=== PATIENT | male | born 1975 | race American Indian/Alaskan Native ===

== ENCOUNTER 2020-11-01 05:01 | Emergency (ER) | payer BC ==
[2020-11-01 05:07] VITALS: BP 132/108
--- NOTE | 2020-11-01 05:22 | Emergency Department Report ---
ED General Adult HPI - General Chief complaint: Rectal Pain Stated complaint: HEMORRHOIDS Source: patient Mode of arrival: Ambulatory Limitations: No Limitations - History of Present Illness Initial comments: Patient is a 45-year-old -[place] male with a history of chronic external hemorrhoids who presents to the ED with acute onset persistent rectal pain due to external hemorrhoids for the last 12 hours. Patient states that the pain is worse with bowel movement or when he sits down. Patient denies rectal bleeding, dysuria, urine frequency and urgency, fever, chills, abdominal pain, nausea and vomiting, testicular pain, low back pain, nausea and vomiting, constipation or diarrhea. MD Complaint: Rectal pain, hemorrhoids -: Sudden, hour(s) (12) Location: buttocks Radiation: non-radiation Severity scale (0 -10): 4 Quality: aching, sharp Consistency: constant Improves with: none Worsens with: other (Bowel movement) Associated Symptoms: denies other symptoms. denies: confusion, chest pain, cough, diaphoresis, fever/chills, headaches, loss of appetite, malaise, nausea/vomiting, rash, seizure, shortness of breath, syncope, weakness, other Treatments Prior to Arrival: none - Related Data Previous Rx's Medication Instructions Recorded Last Taken Type Dibucaine 1% [Nupercainal] 1 applicatio ME TID #1 tube 11/01/20 Unknown Rx Hydrocortisone [Anusol-Hc 2.5% TOP 1 applic RC Q12H #1 cream..g. 11/01/20 Unknown Rx CREAM] Naproxen 500 mg PO Q12H PRN #24 tablet 11/01/20 Unknown Rx ED Review of Systems ROS: Stated complaint: HEMORRHOIDS Other details as noted in HPI Constitutional: denies: chills, fever Eyes: denies: eye pain, eye discharge, vision change ENT: denies: ear pain, throat pain Respiratory: denies: cough, shortness of breath, wheezing Cardiovascular: denies: chest pain, palpitations Endocrine: no symptoms reported Gastrointestinal: other (Rectal pain due to hemorrhoids). denies: abdominal pain, nausea, diarrhea Genitourinary: denies: urgency, dysuria Musculoskeletal: denies: back pain, joint swelling, arthralgia Skin: denies: rash, lesions Neurological: denies: headache, weakness, paresthesias Psychiatric: denies: anxiety, depression Hematological/Lymphatic: denies: easy bleeding, easy bruising ED Past Medical Hx - Medications Home Medications: Home Medications Medication Instructions Recorded Confirmed Last Taken Type Dibucaine 1% [Nupercainal] 1 applicatio ME TID #1 tube 11/01/20 Unknown Rx Hydrocortisone [Anusol-Hc 2.5% TOP 1 applic RC Q12H #1 cream..g. 11/01/20 Unknown Rx CREAM] Naproxen 500 mg PO Q12H PRN #24 tablet 11/01/20 Unknown Rx ED Physical Exam - General Limitations: No Limitations General appearance: alert, in no apparent distress - Head Head exam: Present: atraumatic, normocephalic, normal inspection - Eye Eye exam: Present: normal appearance, PERRL, EOMI Pupils: Present: normal accommodation - ENT ENT exam: Present: normal exam, normal orophraynx, mucous membranes moist, TM's normal bilaterally, normal external ear exam - Neck Neck exam: Present: normal inspection, full ROM. Absent: tenderness - Respiratory Respiratory exam: Present: normal lung sounds bilaterally. Absent: respiratory distress, wheezes, rales, rhonchi, stridor, chest wall tenderness, accessory muscle use, decreased breath sounds, prolonged expiratory - Cardiovascular Cardiovascular Exam: Present: regular rate, normal rhythm, normal heart sounds. Absent: systolic murmur, diastolic murmur, rubs, gallop - GI/Abdominal GI/Abdominal exam: Present: soft, normal bowel sounds. 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 Absent: tenderness, CVA tenderness (R), CVA tenderness (L), muscle spasm, paraspinal tenderness, vertebral tenderness - Neurological Exam Neurological exam: Present: alert, oriented X3, CN II-XII intact, normal gait, reflexes normal - Psychiatric Psychiatric exam: Present: normal affect, normal mood - Skin Skin exam: Present: warm, dry, intact, normal color. Absent: rash ED Course Vital Signs 11/01/20 05:06 Temperature 98.2 F Pulse Rate 71 Respiratory 18 Rate Blood Pressure 132/108 O2 Sat by Pulse 98 Oximetry ED Medical Decision Making - Medical Decision Making This is a 45-year-old -[place] male with a history of chronic external hemorrhoids who presents to the ED with acute onset persistent rectal pain due to external hemorrhoids for the last 12 hours. Patient states that the pain is worse with bowel movement or when he sits down. In the ED, patient is alert and oriented x3 and is not in any distress with normal vital signs. Patient was discharged home on pain medications and advised to follow-up with his primary care physician in 7 to 10 days for reevaluation. Patient was also advised to increase fiber intake and water intake to improve on possible constipation. Patient was advised to return to the ED immediately if symptoms get worse. - Differential Diagnosis External hemorrhoids; rectal fissures; Critical care attestation.: If time is entered above; I have spent that time in minutes in the direct care of this critically ill patient, excluding procedure time. ED Disposition Clinical Impression: External hemorrhoids, Anal or rectal pain Disposition: 01 HOME / SELF CARE / HOMELESS Is pt being admited?: No Does the pt Need Aspirin: No Condition: Stable Instructions: Hemorrhoids, [id number] Additional Instructions: Take medication with food, drink plenty fluids and follow-up with your primary care physician in 7 to 10 days for reevaluation. Increase water intake and high-fiber diet intake. Return to the ED immediately if symptoms get worse. Prescriptions: Hydrocortisone [Anusol-Hc 2.5% TOP CREAM] 1 applic RC Q12H #1 cream..g. Naproxen 500 mg PO Q12H PRN #24 tablet PRN Reason: Pain , Severe (7-10) Dibucaine 1% [Nupercainal] 1 applicatio ME TID #1 tube Referrals: [facility] [Provider Group] - 3-5 Days Time of Disposition: 05:21 Print Language: SPANISH
== END 2020-11-01 05:35 | disposition home or self-care (01) ==
LOC: ED 05:01
DX: K64.4 Residual hemorrhoidal skin tags (principal); K62.89 Other specified diseases of anus and rectum
CPT/HCPCS: 99282